=== PATIENT | female | born 1945 | race Caucasian/White ===

== ENCOUNTER 2016-08-27 17:43 | Emergency (ER) | payer MEDICARE ==
--- NOTE | 2016-08-27 18:17 | ECGEPIP ---
Stationary ECG Study [facility] - ED Test Date: 2016-08-27 Pat Name: HELEN MACIAS Department: Room: - Gender: F Cath Lab: rn : 1945 Requested By: OMID Hopper Order Number: [id number] Reading MD: Ramiro Paniagua Measurements Intervals [place] Rate: 88 P: 62 NV: 160 QRS: 5 QRSD: 76 T: 53 QT: 337 QTc: 409 Interpretive Statements SINUS RHYTHM NO PRIORS Electronically Signed On 08-27-2016 18:17:27 EST by Ramiro Paniagua
[2016-08-27 18:22] LABS: BASO % 0.6 % (0.0-1.0); EOS # 0.1 K/mm3 (0.0-0.50); EOS % 1.9 % (0.0-3.0); LARGE UNSTAINED CELL # 0.2 K/mm3 (0.0-0.4); LARGE UNSTAINED CELL % 3.4 % (0.0-4.0); LYMPH # 2.1 K/mm3 (1.5-4.5); LYMPH % 33.8 % (24.0-44.0); MEAN CORPUSCULAR HEMOGLOBIN 28.1 pg (27.0-33.0); MEAN CORPUSCULAR HGB CONC 31.5 g/dl (32.0-36.5); MEAN CORPUSCULAR VOLUME 89.1 fl (80.0-96.0); MONO # 0.4 K/mm3 (0.0-0.8); MONO % 6.7 % (0.0-5.0); NEUTROPHILS # 3.4 K/mm3 (1.8-7.7); NEUTROPHILS % 53.6 % (36.0-66.0); PLATELET COUNT, AUTOMATED 353 k/mm3 (150-450); WHITE BLOOD COUNT 6.3 K/mm3 (4.0-10.0)
--- NOTE | 2016-08-27 18:22 | REP ---
Clinical: Chest pain . Comparison: 08/07/2015 . Findings: The mediastinum and cardiac silhouette are stable and within normal limits for portable technique. The lung chavira are clear without acute consolidation, effusion, or pneumothorax. Skeletal structures are intact. Impression: Normal portable chest x-ray Signed by Sammy Pascual MD 08/27/2016 06:13 P
[2016-08-27 18:43] LABS: ANION GAP 8 MEQ/L (8-16); BLOOD UREA NITROGEN 17 MG/DL (7-18); CALCIUM LEVEL 8.3 MG/DL (8.8-10.2); CARBON DIOXIDE LEVEL 28 MEQ/L (21-32); CHLORIDE LEVEL 105 MEQ/L (98-107); CREATININE FOR GFR 0.57 MG/DL (0.55-1.02); GLOMERULAR FILTRATION RATE > 60.0 (>39); GLUCOSE, FASTING 110 MG/DL (83-110); POTASSIUM SERUM 4.1 MEQ/L (3.5-5.1); SODIUM LEVEL 141 MEQ/L (136-145)
--- NOTE | 2016-08-27 19:14 | EDDOCDS ---
Nurse's Notes [facility] Name: Ale Macias Age: 71 yrs Sex: Female : 1945 Arrival Date: 08/27/2016 Time: 17:43 Bed 5 Private MD: Sandip Estrella R. Diagnosis: Palpitations;Chest pain, unspecified Presentation: 08/27 17:50 Presenting complaint: Patient states: last 2 nights chest tightness and feels heart jjr pounding and irregular beats for "about a year" reports difficulty taking a deep breath for past few months. Aspirin was taken PROFILER. Adult Sepsis Screening: The patient does not have new or worsening altered mentation. Patient's respiratory rate is less than 22. Systolic blood pressure is greater than 100. Patient has a qSOFA score of 0- Negative Sepsis Screen. Suicide/Homicide risk assessment- the patient denies having any suicidal and/or homicidal ideations and does not present with any other emotional, behavioral or mental health complaints. Status: Patient is not a food service manager or dependent. Transition of care: patient was not received from another setting of care. 17:50 Acuity: RONNIE Level 3 jjr 17:50 Method Of Arrival: Walkin/Carried/Asstd jjr Triage Assessment: 17:56 General: Appears in no apparent distress, well nourished, well groomed, Behavior is jjr appropriate for age. Pain: Location: mid-sternal area Pain currently is 7 out of 10 on a pain scale. Quality of pain is described as pressure. Neurological: No deficits noted. Cardiovascular: Chest pain is described as Pain is 7 out of 10 on a pain scale. radiates Does not radiate. episodes are intermittent began few days ago. Respiratory: No deficits noted. Derm: No deficits noted. Historical: - Allergies: no known allergies; - Home Meds: 1. aspirin 81 mg Oral TbEC 1 tab once daily (Last dose: 08/27/2016 09:00) 2. amlodipine 5 mg Oral tab 1 tab once daily (Last dose: 08/27/2016) 3. valsartan 160 mg oral tab 1 tab nightly (Last dose: 08/26/2016) - PMHx: Hypertension; Celiac disease; - PSHx: Appendectomy; Tonsillectomy; - Social history: Smoking status: Patient states was never smoker of tobacco. No barriers to communication noted, The patient speaks fluent Occitan. - Family history: Not pertinent. - : The pt / caregiver states he / she is not on anticoagulants. Home medication list is obtained from the patient. - Exposure Risk Screening:: None identified. Screenin:00 Screening information is obtained from the patient. Fall risk: No risks identified. jjr Assistance ADL's: requires no assistance with activities of daily living. Abuse/DV Screen: The patient / caregiver reports he/she is: not in a situation that causes fear, pain or injury. Nutritional screening: No deficits noted. Advance Directives: There is no active DNR order. home support is adequate. Assessment: 17:58 General: Appears in no apparent distress. Cardiovascular: Rhythm is sinus rhythm. jjr 18:13 General: Behavior is anxious. Neurological: No deficits noted. Respiratory: No deficits jjr noted. Derm: No deficits noted. 19:11 General: Appears in no apparent distress, Behavior is cooperative. Neurological: Level af2 of Consciousness is awake, alert, obeys commands, Oriented to person, place, time. Cardiovascular: Rhythm is sinus rhythm. Respiratory: Airway is patent Respiratory effort is even, unlabored. Derm: Skin is normal. Vital Signs: 17:45 BP 163 / 83; Pulse 100; Resp 18; Temp 96.9; Pulse Ox 100% ; Weight 58.97 kg; Height 5 cmb ft. 3 in. (160.02 cm); Pain 8/10; 18:00 BP 160 / 89; Pulse 84; Resp 18; Pulse Ox 98% on R/A; jjr 18:29 BP 153 / 73 (auto/); jjr 18:29 Pulse 78 MON; Resp 18; Pulse Ox 97% on R/A; jjr 19:12 BP 147 / 89; Pulse 79; Resp 18 S; Temp 97.9(O); Pulse Ox 96% on R/A; Pain 0/10; af2 17:45 Body Mass Index 23.03 (58.97 kg, 160.02 cm) [facility] Vitals: 17:45 Log In Time: August 27, 2016 at 17:43. b ED Course: 17:44 Patient visited by Brianna Morales. cmb 17:44 Patient moved to Waiting [facility] 17:45 Sandip Estrella is Private Physician. cmb 17:46 RN notified that patient meets Red Flag criteria. cmb 17:46 Patient moved to 5 cmb 17:54 Triage Initiated jjr 17:58 The patient / caregiver is instructed regarding the plan of care and ED course. Cardiac jjr monitor on. Pulse ox on. NIBP on. 18:00 EKG done. (by ED staff). Reviewed by Omid Lewis MD. rn1 18:01 Patient visited by Marli Garcias, RN. jjr 18:13 Patient visited by Marli Garcias, RN. jjr 18:13 Basic Metabolic Profile Sent. jjr 18:13 CBC with Diff Sent. jjr 18:13 Cardiac Injury Profile Sent. jjr 18:13 Troponin Sent. jjr 18:13 Inserted saline lock: 20 gauge in left antecubital area and blood collected. Labs jjr drawn. (by ED staff). Sent per order to lab. 18:19 [facility] FNP [facility]. ke 18:19 Patient visited by Tyler Oates FNP. ke 18:19 Patient visited by Tyler Oates FNP. ke 18:38 EKG-ADULT Returned. EDMS 18:41 [facility] Payment Agreement was scanned into [employer] and attached to record. zo 18:41 portable chest Returned. EDMS 18:58 Kaiser Rodriguez MD is Referral Physician. ke 18:59 Maeve De Jesus,RN is Primary Nurse. af2 19:12 No procedures done that require assistance. af2 Order Results: Lab Order: Basic Metabolic Profile; SPEC'M 08/27/16 18:09 Test: GLUCOSE, FASTING; Value: 110; Range: 83-110; Units: MG/DL; Status: F Test: BLOOD UREA NITROGEN; Value: 17; Range: 7-18; Units: MG/DL; Status: F Test: CREATININE FOR GFR; Value: 0.57; Range: 0.55-1.02; Units: MG/DL; Status: F Test: GLOMERULAR FILTRATION RATE; Value: > 60.0; Range: >39; Status: F Test: SODIUM LEVEL; Value: 141; Range: 136-145; Units: MEQ/L; Status: F Test: POTASSIUM SERUM; Value: 4.1; Range: 3.5-5.1; Units: MEQ/L; Status: F Test: CHLORIDE LEVEL; Value: 105; Range: 98-107; Units: MEQ/L; Status: F Test: CARBON DIOXIDE LEVEL; Value: 28; Range: 21-32; Units: MEQ/L; Status: F Test: ANION GAP; Value: 8; Range: 8-16; Units: MEQ/L; Status: F Test: CALCIUM LEVEL; Value: 8.3; Range: 8.8-10.2; Abnormal: Below low normal; Units: MG/DL; Status: F Test Note: ; Units are mL/min/1.73 m2 Chronic Kidney Disease Staging per NKF: Stage I & II GFR >=60 Normal to Mildly Decreased Stage III GFR 30-59 Moderately Decreased Stage IV GFR 15-29 Severely Decreased Stage V GFR <15 Very Little GFR Left ESRD GFR <15 on TECHNOLOGY METHODOLOGY CONSULTANT Lab Order: CBC with Diff; SPEC'M 08/27/16 18:09 Test: WHITE BLOOD COUNT; Value: 6.3; Range: 4.0-10.0; Units: K/mm3; Status: F Test: RED BLOOD COUNT; Value: 4.49; Range: 4.00-5.40; Units: M/mm3; Status: F Test: HEMOGLOBIN; Value: 12.6; Range: 12.0-16.0; Units: g/dl; Status: F Test: HEMATOCRIT; Value: 40.0; Range: 36.0-47.0; Units: %; Status: F Test: MEAN CORPUSCULAR VOLUME; Value: 89.1; Range: 80.0-96.0; Units: fl; Status: F Test: MEAN CORPUSCULAR HEMOGLOBIN; Value: 28.1; Range: 27.0-33.0; Units: pg; Status: F Test: MEAN CORPUSCULAR HGB CONC; Value: 31.5; Range: 32.0-36.5; Abnormal: Below low normal; Units: g/dl; Status: F Test: RED CELL DISTRIBUTION WIDTH; Value: 13.0; Range: 11.5-14.5; Units: %; Status: F Test: PLATELET COUNT, AUTOMATED; Value: 353; Range: 150-450; Units: k/mm3; Status: F Test: NEUTROPHILS %; Value: 53.6; Range: 36.0-66.0; Units: %; Status: F Test: LYMPH %; Value: 33.8; Range: 24.0-44.0; Units: %; Status: F Test: MONO %; Value: 6.7; Range: 0.0-5.0; Abnormal: Above high normal; Units: %; Status: F Test: EOS %; Value: 1.9; Range: 0.0-3.0; Units: %; Status: F Test: BASO %; Value: 0.6; Range: 0.0-1.0; Units: %; Status: F Test: LARGE UNSTAINED CELL %; Value: 3.4; Range: 0.0-4.0; Units: %; Status: F Test: NEUTROPHILS #; Value: 3.4; Range: 1.8-7.7; Units: K/mm3; Status: F Test: LYMPH #; Value: 2.1; Range: 1.5-4.5; Units: K/mm3; Status: F Test: MONO #; Value: 0.4; Range: 0.0-0.8; Units: K/mm3; Status: F Test: EOS #; Value: 0.1; Range: 0.0-0.50; Units: K/mm3; Status: F Test: BASO #; Value: 0.0; Range: 0.0-0.2; Units: K/mm3; Status: F Test: LARGE UNSTAINED CELL #; Value: 0.2; Range: 0.0-0.4; Units: K/mm3; Status: F Lab Order: Cardiac Injury Profile; SPEC'M 08/27/16 18:09 Test: CPK CREATINE PHOSPHOKINASE; Value: 70; Range: 26-192; Units: U/L; Status: F Test: CK-MB VALUE MASS; Value: 1.0; Range: 0.0-3.6; Units: NG/ML; Status: F Test: MB/CK RELATIVE INDEX; Value: 1.42; Range: < OR =4; Status: F Test Note: ; DIAGNOSIS CRITERIA MMB ng/ml Relative Index (RI) NON-AMI < or = 5 N/A BOWIE ZONE > 5 < or = 4 AMI > 5 > 4 Lab Order: Troponin; SPEC'M 08/27/16 18:09 Test: TROPONIN I; Value: < 0.02; Range: < 0.10; Units: NG/ML; Status: F Test Note: ; Troponin I Reference Interval for Siemens [place] LOCI: 99th Percentile= 0.00-0.045 ng/ml Risk Stratification: <= 0.10 ng/ml Decreased Risk for Adverse Clinical Events. 0.10-1.50 ng/ml Increased Risk for Adverse Clinical Events. Evaluation of additional criterion and/or repeat testing in 2-6 hours is suggested to rule out myocardial damage. >= 1.50 ng/ml Indicative of Myocardial Injury. 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 The lung chavira are clear without acute consolidation,; effusion, or pneumothorax. Skeletal structures are intact.; ; Impression:; Normal portable chest x-ray; ; ; Signed by; Sammy Pascual MD 08/27/2016 06:13 P; Outcome: 18:59 Discharge ordered by Provider. ke 19:12 Discharge Assessment: Patient awake, alert and oriented x 3. No cognitive and/or af2 functional deficits noted. Patient verbalized understanding of disposition instructions. patient administered narcotics - no. The following High Risk Discharge criteria are identified: None. Discharged to home ambulatory. Condition: stable. Discharge instructions given to patient, Instructed on discharge instructions, follow up and referral plans. Demonstrated understanding of instructions, Pt was receptive of discharge instructions/ teaching. No special radiology studies were completed. Property :Personal belongings accompany Pt. 19:13 Patient left the ED. af2 Signatures: Dispatcher [employer] EDMS Tyler Oates, PRODUCT SAFETY HEAD Ermias Anderson Jessica, RN RN Brianna Allen Amber,STEPH RN af2 Harrison Nash rn1 [place]
--- NOTE | 2016-08-27 19:14 | EDDOCDS ---
Physician Documentation [facility] Name: Ale Helton Age: 71 yrs Sex: Female : 1945 Arrival Date: 08/27/2016 Time: 17:43 Bed 5 Private MD: Sandip Estrella R. Disposition: 08/27/16 18:59 Discharged to Home/Self Care. Impression: Palpitations, Chest pain, unspecified. - Condition is Stable. - Discharge Instructions: Nonspecific Chest Pain, Palpitations. - Local Pharmacy Hours, Medication Reconciliation form. - Follow up: Kaiser Rodriguez MD; When: 4 - 5 days; Reason: Recheck today's complaints, Continuance of care. - Problem is an ongoing problem. - Symptoms are unchanged. Historical: - Allergies: no known allergies; - Home Meds: 1. aspirin 81 mg Oral TbEC 1 tab once daily (Last dose: 08/27/2016 09:00) 2. amlodipine 5 mg Oral tab 1 tab once daily (Last dose: 08/27/2016) 3. valsartan 160 mg oral tab 1 tab nightly (Last dose: 08/26/2016) - PMHx: Hypertension; Celiac disease; - PSHx: Appendectomy; Tonsillectomy; - Social history: Smoking status: Patient states was never smoker of tobacco. No barriers to communication noted, The patient speaks fluent American. - Family history: Not pertinent. - : The pt / caregiver states he / she is not on anticoagulants. Home medication list is obtained from the patient. - Exposure Risk Screening:: None identified. Vital Signs: 08/27 17:45 BP 163 / 83; Pulse 100; Resp 18; Temp 96.9; Pulse Ox 100% ; Weight 58.97 kg / 130.01 cmb lbs; Height 5 ft. 3 in. (160.02 cm); Pain 8/10; 18:00 BP 160 / 89; Pulse 84; Resp 18; Pulse Ox 98% on R/A; jjr 18:29 BP 153 / 73 (auto/); jjr 18:29 Pulse 78 MON; Resp 18; Pulse Ox 97% on R/A; jjr 19:12 BP 147 / 89; Pulse 79; Resp 18 S; Temp 97.9(O); Pulse Ox 96% on R/A; Pain 0/10; af2 17:45 Body Mass Index 23.03 (58.97 kg, 160.02 cm) cmb MDM: 17:49 ECG WITH READING ER PHYS+CARDIAG ordered. EDMS 17:57 Machine Set Up Technician/Pulse Ox/q 30 min VS ordered. br1 17:57 IV Saline Lock ordered. br1 17:57 Rhythm Strip to chart ordered. br1 17:57 Undress patient appropriately for examination ordered. br1 17:58 Basic Metabolic Profile Ordered. EDMS 17:58 CBC with Diff Ordered. EDMS 17:58 Cardiac Injury Profile Ordered. EDMS 17:58 Troponin Ordered. EDMS 17:58 portable chest Ordered. EDMS 18:22 Financial registration complete. zo 18:41 [facility] Payment Agreement was scanned into [employer] and attached to record. zo 18:56 Basic Metabolic Profile Reviewed. ke 18:56 CBC with Diff Reviewed. ke 18:56 Cardiac Injury Profile Reviewed. ke 18:56 Troponin Reviewed. ke 18:56 EKG-ADULT Reviewed. ke 18:56 portable chest Reviewed. ke Signatures: Dispatcher [employer] EDNE Tyler Oates, JAVA CONSULTANT JAVA CONSULTANT Ermias Tyler Brian, MD MD br1 Marli Garcias, RN RN Maeve ChristianRN RN af2 The chart was reviewed and I authenticate all verbal orders and agree with the evaluation and treatment provided.Attachments: 18:41 [facility] Payment Agreement zo MTDD
--- NOTE | 2016-08-29 20:14 | EDDOCDS ---
Physician Documentation [facility] Name: Ale Helton Age: 71 yrs Sex: Female : 1945 Arrival Date: 08/27/2016 Time: 17:43 Bed 5 Private MD: Sandip Estrella R. Disposition: 08/27/16 18:59 Discharged to Home/Self Care. Impression: Palpitations, Chest pain, unspecified. - Condition is Stable. - Discharge Instructions: Nonspecific Chest Pain, Palpitations. - Local Pharmacy Hours, Medication Reconciliation form. - Follow up: Kaiser Rodriguez MD; When: 4 - 5 days; Reason: Recheck today's complaints, Continuance of care. - Problem is an ongoing problem. - Symptoms are unchanged. Historical: - Allergies: no known allergies; - Home Meds: 1. aspirin 81 mg Oral TbEC 1 tab once daily (Last dose: 08/27/2016 09:00) 2. amlodipine 5 mg Oral tab 1 tab once daily (Last dose: 08/27/2016) 3. valsartan 160 mg oral tab 1 tab nightly (Last dose: 08/26/2016) - PMHx: Hypertension; Celiac disease; - PSHx: Appendectomy; Tonsillectomy; - Social history: Smoking status: Patient states was never smoker of tobacco. No barriers to communication noted, The patient speaks fluent [place]serratian. - Family history: Not pertinent. - : The pt / caregiver states he / she is not on anticoagulants. Home medication list is obtained from the patient. - Exposure Risk Screening:: None identified. Vital Signs: 08/27 17:45 BP 163 / 83; Pulse 100; Resp 18; Temp 96.9; Pulse Ox 100% ; Weight 58.97 kg / 130.01 cmb lbs; Height 5 ft. 3 in. (160.02 cm); Pain 8/10; 18:00 BP 160 / 89; Pulse 84; Resp 18; Pulse Ox 98% on R/A; jjr 18:29 BP 153 / 73 (auto/); jjr 18:29 Pulse 78 MON; Resp 18; Pulse Ox 97% on R/A; jjr 19:12 BP 147 / 89; Pulse 79; Resp 18 S; Temp 97.9(O); Pulse Ox 96% on R/A; Pain 0/10; af2 17:45 Body Mass Index 23.03 (58.97 kg, 160.02 cm) cmb MDM: 17:49 ECG WITH READING ER PHYS+CARDIAG ordered. EDMS 17:57 Prepared Foods Supervisor/Pulse Ox/q 30 min VS ordered. br1 17:57 IV Saline Lock ordered. br1 17:57 Rhythm Strip to chart ordered. br1 17:57 Undress patient appropriately for examination ordered. br1 17:58 Basic Metabolic Profile Ordered. EDMS 17:58 CBC with Diff Ordered. EDMS 17:58 Cardiac Injury Profile Ordered. EDMS 17:58 Troponin Ordered. EDMS 17:58 portable chest Ordered. EDMS 18:22 Financial registration complete. zo 18:41 [facility] Payment Agreement was scanned into [employer] and attached to record. zo 18:56 Basic Metabolic Profile Reviewed. ke 18:56 CBC with Diff Reviewed. ke 18:56 Cardiac Injury Profile Reviewed. ke 18:56 Troponin Reviewed. ke 18:56 EKG-ADULT Reviewed. ke 18:56 portable chest Reviewed. ke 08/28 08:56 T-Sheet-- Draft Copy was scanned into [employer] and attached to record. [facility] Signatures: Dispatcher [employer] EDMS Tyler Oates, COMMISSIONING EDITOR COMMISSIONING EDITOR Ermias Tyler Brian, MD MD br1 Marli Garcias RN RN jjr Fulton, Amber, RN RN af2 Tiki Ashraf [facility] The chart was reviewed and I authenticate all verbal orders and agree with the evaluation and treatment provided.Attachments: 08/27 18:41 [facility] Payment Agreement zo 08/28 08:56 T-Sheet-- Draft Copy [facility] Chart Complete MTDD
--- NOTE | 2016-08-29 20:14 | EDDOCDS ---
Physician Documentation [facility] Name: Ale Helton Age: 71 yrs Sex: Female : 1945 Arrival Date: 08/27/2016 Time: 17:43 Bed 5 Private MD: Sandip Estrella R. Disposition: 08/27/16 18:59 Discharged to Home/Self Care. Impression: Palpitations, Chest pain, unspecified. - Condition is Stable. - Discharge Instructions: Nonspecific Chest Pain, Palpitations. - Local Pharmacy Hours, Medication Reconciliation form. - Follow up: Kaiser Rodriguez MD; When: 4 - 5 days; Reason: Recheck today's complaints, Continuance of care. - Problem is an ongoing problem. - Symptoms are unchanged. Historical: - Allergies: no known allergies; - Home Meds: 1. aspirin 81 mg Oral TbEC 1 tab once daily (Last dose: 08/27/2016 09:00) 2. amlodipine 5 mg Oral tab 1 tab once daily (Last dose: 08/27/2016) 3. valsartan 160 mg oral tab 1 tab nightly (Last dose: 08/26/2016) - PMHx: Hypertension; Celiac disease; - PSHx: Appendectomy; Tonsillectomy; - Social history: Smoking status: Patient states was never smoker of tobacco. No barriers to communication noted, The patient speaks fluent Kenyan. - Family history: Not pertinent. - : The pt / caregiver states he / she is not on anticoagulants. Home medication list is obtained from the patient. - Exposure Risk Screening:: None identified. Vital Signs: 08/27 17:45 BP 163 / 83; Pulse 100; Resp 18; Temp 96.9; Pulse Ox 100% ; Weight 58.97 kg / 130.01 cmb lbs; Height 5 ft. 3 in. (160.02 cm); Pain 8/10; 18:00 BP 160 / 89; Pulse 84; Resp 18; Pulse Ox 98% on R/A; jjr 18:29 BP 153 / 73 (auto/); jjr 18:29 Pulse 78 MON; Resp 18; Pulse Ox 97% on R/A; jjr 19:12 BP 147 / 89; Pulse 79; Resp 18 S; Temp 97.9(O); Pulse Ox 96% on R/A; Pain 0/10; af2 17:45 Body Mass Index 23.03 (58.97 kg, 160.02 cm) cmb MDM: 17:49 ECG WITH READING ER PHYS+CARDIAG ordered. EDMS 17:57 Environmental Test Technician/Pulse Ox/q 30 min VS ordered. br1 17:57 IV Saline Lock ordered. br1 17:57 Rhythm Strip to chart ordered. br1 17:57 Undress patient appropriately for examination ordered. br1 17:58 Basic Metabolic Profile Ordered. EDMS 17:58 CBC with Diff Ordered. EDMS 17:58 Cardiac Injury Profile Ordered. EDMS 17:58 Troponin Ordered. EDMS 17:58 portable chest Ordered. EDMS 18:22 Financial registration complete. zo 18:41 [facility] Payment Agreement was scanned into [employer] and attached to record. zo 18:56 Basic Metabolic Profile Reviewed. ke 18:56 CBC with Diff Reviewed. ke 18:56 Cardiac Injury Profile Reviewed. ke 18:56 Troponin Reviewed. ke 18:56 EKG-ADULT Reviewed. ke 18:56 portable chest Reviewed. ke 08/28 08:56 T-Sheet-- Draft Copy was scanned into [email or web address] and attached to record. [facility] Signatures: Dispatcher [employer] EDMS Tyler Oates, LABORER GOLF COURSE LABORER GOLF COURSE Ermias Tyler Brian, MD MD br1 Marli Garcias RN RN jjr Fulton, Amber, RN RN af2 Tiki Ashraf [facility] The chart was reviewed and I authenticate all verbal orders and agree with the evaluation and treatment provided.Attachments: 08/27 18:41 [facility] [place] Payment Agreement zo 08/28 08:56 T-Sheet-- Draft Copy [facility] Chart Complete MTDD
--- NOTE | 2016-08-29 20:15 | EDDOCDS ---
Nurse's Notes [facility] Name: Helen Macias Age: 71 yrs Sex: Female : 1945 Arrival Date: 08/27/2016 Time: 17:43 Bed 5 Private MD: Sandip Estrella R. Diagnosis: Palpitations;Chest pain, unspecified Presentation: 08/27 17:50 Presenting complaint: Patient states: last 2 nights chest tightness and feels heart jjr pounding and irregular beats for "about a year" reports difficulty taking a deep breath for past few months. 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 Adult Sepsis Screening: The patient does not have new or worsening altered mentation. Patient's respiratory rate is less than 22. Systolic blood pressure is greater than 100. Patient has a qSOFA score of 0- Negative Sepsis Screen. Suicide/Homicide risk assessment- the patient denies having any suicidal and/or homicidal ideations and does not present with any other emotional, behavioral or mental health complaints. 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 Transition of care: patient was not received from another setting of care. 17:50 Acuity: RONNIE Level 3 jjr 17:50 Method Of Arrival: Walkin/Carried/Asstd jjr Triage Assessment: 17:56 General: Appears in no apparent distress, well nourished, well groomed, Behavior is jjr appropriate for age. Pain: Location: mid-sternal area Pain currently is 7 out of 10 on a pain scale. Quality of pain is described as pressure. Neurological: No deficits noted. Cardiovascular: Chest pain is described as Pain is 7 out of 10 on a pain scale. radiates Does not radiate. episodes are intermittent began few days ago. Respiratory: No deficits noted. Derm: No deficits noted. Historical: - Allergies: no known allergies; - Home Meds: 1. aspirin 81 mg Oral TbEC 1 tab once daily (Last dose: 08/27/2016 09:00) 2. amlodipine 5 mg Oral tab 1 tab once daily (Last dose: 08/27/2016) 3. valsartan 160 mg oral tab 1 tab nightly (Last dose: 08/26/2016) - PMHx: Hypertension; Celiac disease; - PSHx: Appendectomy; Tonsillectomy; - Social history: Smoking status: Patient states was never smoker of tobacco. No barriers to communication noted, The patient speaks fluent Bulgarian. - Family history: Not pertinent. - : The pt / caregiver states he / she is not on anticoagulants. Home medication list is obtained from the patient. - Exposure Risk Screening:: None identified. Screenin:00 Screening information is obtained from the patient. Fall risk: No risks identified. jjr Assistance ADL's: requires no assistance with activities of daily living. Abuse/DV Screen: The patient / caregiver reports he/she is: not in a situation that causes fear, pain or injury. Nutritional screening: No deficits noted. Advance Directives: There is no active DNR order. home support is adequate. Assessment: 17:58 General: Appears in no apparent distress. Cardiovascular: Rhythm is sinus rhythm. jjr 18:13 General: Behavior is anxious. Neurological: No deficits noted. Respiratory: No deficits jjr noted. Derm: No deficits noted. 19:11 General: Appears in no apparent distress, Behavior is cooperative. Neurological: Level af2 of Consciousness is awake, alert, obeys commands, Oriented to person, place, time. Cardiovascular: Rhythm is sinus rhythm. Respiratory: Airway is patent Respiratory effort is even, unlabored. Derm: Skin is normal. Vital Signs: 17:45 BP 163 / 83; Pulse 100; Resp 18; Temp 96.9; Pulse Ox 100% ; Weight 58.97 kg; Height 5 cmb ft. 3 in. (160.02 cm); Pain 8/10; 18:00 BP 160 / 89; Pulse 84; Resp 18; Pulse Ox 98% on R/A; jjr 18:29 BP 153 / 73 (auto/); jjr 18:29 Pulse 78 MON; Resp 18; Pulse Ox 97% on R/A; jjr 19:12 BP 147 / 89; Pulse 79; Resp 18 S; Temp 97.9(O); Pulse Ox 96% on R/A; Pain 0/10; af2 17:45 Body Mass Index 23.03 (58.97 kg, 160.02 cm) [facility] Vitals: 17:45 Log In Time: August 27, 2016 at 17:43. b ED Course: 17:44 Patient visited by Brianna Morales. cmb 17:44 Patient moved to Waiting [facility] 17:45 Sandip Estrella is Private Physician. cmb 17:46 RN notified that patient meets Red Flag criteria. cmb 17:46 Patient moved to 5 cmb 17:54 Triage Initiated jjr 17:58 The patient / caregiver is instructed regarding the plan of care and ED course. Cardiac jjr monitor on. Pulse ox on. NIBP on. 18:00 EKG done. (by ED staff). Reviewed by Omid Lewis MD. rn1 18:01 Patient visited by Marli Garcias, RN. jjr 18:13 Patient visited by Marli Garcias, RN. jjr 18:13 Basic Metabolic Profile Sent. jjr 18:13 CBC with Diff Sent. jjr 18:13 Cardiac Injury Profile Sent. jjr 18:13 Troponin Sent. jjr 18:13 Inserted saline lock: 20 gauge in left antecubital area and blood collected. Labs jjr drawn. (by ED staff). Sent per order to lab. 18:19 Tyler Oates FNP [facility]. ke 18:19 Patient visited by Tyler Oates FNP. ke 18:19 Patient visited by Tyler Oates FNP. ke 18:38 EKG-ADULT Returned. EDMS 18:41 [facility] Payment Agreement was scanned into [employer] and attached to record. zo 18:41 portable chest Returned. EDMS 18:58 Kaiser Rodriguez MD is Referral Physician. ke 18:59 Maeve De Jesus,RN is Primary Nurse. af2 19:12 No procedures done that require assistance. af2 08/28 08:56 T-Sheet-- Draft Copy was scanned into [employer] and attached to record. [facility]x [facility] Order Results: Lab Order: Basic Metabolic Profile; SPEC'M 08/27/16 18:09 Test: GLUCOSE, FASTING; Value: 110; Range: 83-110; Units: MG/DL; Status: F Test: BLOOD UREA NITROGEN; Value: 17; Range: 7-18; Units: MG/DL; Status: F Test: CREATININE FOR GFR; Value: 0.57; Range: 0.55-1.02; Units: MG/DL; Status: F Test: GLOMERULAR FILTRATION RATE; Value: > 60.0; Range: >39; Status: F Test: SODIUM LEVEL; Value: 141; Range: 136-145; Units: MEQ/L; Status: F Test: POTASSIUM SERUM; Value: 4.1; Range: 3.5-5.1; Units: MEQ/L; Status: F Test: CHLORIDE LEVEL; Value: 105; Range: 98-107; Units: MEQ/L; Status: F Test: CARBON DIOXIDE LEVEL; Value: 28; Range: 21-32; Units: MEQ/L; Status: F Test: ANION GAP; Value: 8; Range: 8-16; Units: MEQ/L; Status: F Test: CALCIUM LEVEL; Value: 8.3; Range: 8.8-10.2; Abnormal: Below low normal; Units: MG/DL; Status: F Test Note: ; Units are mL/min/1.73 m2 Chronic Kidney Disease Staging per NKF: Stage I & II GFR >=60 Normal to Mildly Decreased Stage III GFR 30-59 Moderately Decreased Stage IV GFR 15-29 Severely Decreased Stage V GFR <15 Very Little GFR Left ESRD GFR <15 on MARKETING TRAFFIC COORDINATOR Lab Order: CBC with Diff; SPEC'M 08/27/16 18:09 Test: WHITE BLOOD COUNT; Value: 6.3; Range: 4.0-10.0; Units: K/mm3; Status: F Test: RED BLOOD COUNT; Value: 4.49; Range: 4.00-5.40; Units: M/mm3; Status: F Test: HEMOGLOBIN; Value: 12.6; Range: 12.0-16.0; Units: g/dl; Status: F Test: HEMATOCRIT; Value: 40.0; Range: 36.0-47.0; Units: %; Status: F Test: MEAN CORPUSCULAR VOLUME; Value: 89.1; Range: 80.0-96.0; Units: fl; Status: F Test: MEAN CORPUSCULAR HEMOGLOBIN; Value: 28.1; Range: 27.0-33.0; Units: pg; Status: F Test: MEAN CORPUSCULAR HGB CONC; Value: 31.5; Range: 32.0-36.5; Abnormal: Below low normal; Units: g/dl; Status: F Test: RED CELL DISTRIBUTION WIDTH; Value: 13.0; Range: 11.5-14.5; Units: %; Status: F Test: PLATELET COUNT, AUTOMATED; Value: 353; Range: 150-450; Units: k/mm3; Status: F Test: NEUTROPHILS %; Value: 53.6; Range: 36.0-66.0; Units: %; Status: F Test: LYMPH %; Value: 33.8; Range: 24.0-44.0; Units: %; Status: F Test: MONO %; Value: 6.7; Range: 0.0-5.0; Abnormal: Above high normal; Units: %; Status: F Test: EOS %; Value: 1.9; Range: 0.0-3.0; Units: %; Status: F Test: BASO %; Value: 0.6; Range: 0.0-1.0; Units: %; Status: F Test: LARGE UNSTAINED CELL %; Value: 3.4; Range: 0.0-4.0; Units: %; Status: F Test: NEUTROPHILS #; Value: 3.4; Range: 1.8-7.7; Units: K/mm3; Status: F Test: LYMPH #; Value: 2.1; Range: 1.5-4.5; Units: K/mm3; Status: F Test: MONO #; Value: 0.4; Range: 0.0-0.8; Units: K/mm3; Status: F Test: EOS #; Value: 0.1; Range: 0.0-0.50; Units: K/mm3; Status: F Test: BASO #; Value: 0.0; Range: 0.0-0.2; Units: K/mm3; Status: F Test: LARGE UNSTAINED CELL #; Value: 0.2; Range: 0.0-0.4; Units: K/mm3; Status: F Lab Order: Cardiac Injury Profile; SPEC'M 08/27/16 18:09 Test: CPK CREATINE PHOSPHOKINASE; Value: 70; Range: 26-192; Units: U/L; Status: F Test: CK-MB VALUE MASS; Value: 1.0; Range: 0.0-3.6; Units: NG/ML; Status: F Test: MB/CK RELATIVE INDEX; Value: 1.42; Range: < OR =4; Status: F Test Note: ; DIAGNOSIS CRITERIA MMB ng/ml Relative Index (RI) NON-AMI < or = 5 N/A BOWIE ZONE > 5 < or = 4 AMI > 5 > 4 Lab Order: Troponin; FANTASMA 08/27/16 18:09 Test: TROPONIN I; Value: < 0.02; Range: < 0.10; Units: NG/ML; Status: F Test Note: ; Troponin I Reference Interval for [employer] [place] LOCI: 99th Percentile= 0.00-0.045 ng/ml Risk Stratification: <= 0.10 ng/ml Decreased Risk for Adverse Clinical Events. 0.10-1.50 ng/ml Increased Risk for Adverse Clinical Events. Evaluation of additional criterion and/or repeat testing in 2-6 hours is suggested to rule out myocardial damage. >= 1.50 ng/ml Indicative of Myocardial Injury. Radiology Order: EKG-ADULT Test: EKG-ADULT REASON FOR EXAMINATION: Chest Pain; Stationary ECG Study; [facility] - ED; ; Test Date: 2016-08-27; Pat Name: HELEN MACIAS Department:; Room: -; Gender: F Photographers' Model: rn; : 1945 Requested By: OMID Hopper; Order Number: [id number] Reading MD: Ramiro Paniagua; Measurements; Intervals [place]; Rate: 88 P: 62; VT: 160 QRS: 5; QRSD: 76 T: 53; QT: 337; QTc: 409; Interpretive Statements; SINUS RHYTHM; NO PRIORS; Electronically Signed On 08-27-2016 18:17:27 EST by Ramiro Paniagua; Radiology Order: portable chest Test: portable chest REASON FOR EXAMINATION: Chest Pain; Clinical: Chest pain .; ; Comparison: 08/07/2015 .; ; Findings:; The mediastinum and cardiac silhouette are stable and within normal limits for; portable technique. The lung chavira are clear without acute consolidation,; effusion, or pneumothorax. Skeletal structures are intact.; ; Impression:; Normal portable chest x-ray; ; ; Signed by; Sammy Pascual MD 08/27/2016 06:13 P; Outcome: 08/27 18:59 Discharge ordered by Provider. nancy 19:12 Discharge Assessment: Patient awake, alert and oriented x 3. No cognitive and/or af2 functional deficits noted. Patient verbalized understanding of disposition instructions. patient administered narcotics - no. The following High Risk Discharge criteria are identified: None. Discharged to home ambulatory. Condition: stable. Discharge instructions given to patient, Instructed on discharge instructions, follow up and referral plans. Demonstrated understanding of instructions, Pt was receptive of discharge instructions/ teaching. No special radiology studies were completed. Property :Personal belongings accompany Pt. 19:13 Patient left the ED. af2 Signatures: Dispatcher [employer] EDMS Tyler Oates, Ermias Mohr Jessica, RN RN Brianna Allen AmberRN RN af2 Harrison Nash rn1 Tiki Ashraf Chart Complete APPLE
== END 2016-08-27 19:13 | disposition home or self-care (01) ==
LOC: M ED 17:43
DX: R07.89 Other chest pain (principal); R00.2 Palpitations; R06.02 Shortness of breath; I10 Essential (primary) hypertension; K90.0 Celiac disease; Z79.899 Other long term (current) drug therapy; Z79.82 Long term (current) use of aspirin

== ENCOUNTER → 2017-10-26 | Outpatient (REF) | payer MEDICARE | LOC: M SFHCLERA 10:24 | DX: R94.6 Abnormal results of thyroid function studies (principal); E78.2 Mixed hyperlipidemia; E55.9 Vitamin D deficiency, unspecified; Z53.9 Procedure and treatment not carried out, unspecified reason ==

== ENCOUNTER → 2017-11-01 | Outpatient (REF) | payer MEDICARE ==
[2017-11-01 11:43] LABS: HEMATOCRIT 35.9 % (36.0-47.0); HEMOGLOBIN 11.3 g/dl (12.0-15.5); MEAN CORPUSCULAR HGB CONC 31.5 g/dl (32.0-36.5); MEAN CORPUSCULAR VOLUME 89.1 fl (80.0-96.0); PLATELET COUNT, AUTOMATED 287 10^3/uL (150-450); RED BLOOD COUNT 4.03 10^6/uL (4.00-5.40); RED CELL DISTRIBUTION WIDTH 14.4 % (11.5-14.5); WHITE BLOOD COUNT 4.8 10^3/uL (4.0-10.0)
[2017-11-01 12:05] LABS: TOTAL 25(OH) VITAMIN D 31.8 NG/ML (30.0-100.0)
[2017-11-01 12:07] LABS: CALCIUM LEVEL 8.1 MG/DL (8.8-10.2); CHOLESTEROL LEVEL 166 MG/DL (<200); CHOLESTEROL RISK RATIO 4.048 (<5); GLUCOSE, FASTING 93 MG/DL (70-100); HDL CHOLESTEROL 41 MG/DL (>40); LDL CHOLESTEROL 109.2 MG/DL (<100); NON-HDL-C 125 MG/DL; TRIGLYCERIDES LEVEL 79 MG/DL (<150)
== END ==
LOC: M SFHCLERA 08:08
DX: R94.6 Abnormal results of thyroid function studies (principal); E78.2 Mixed hyperlipidemia; E55.9 Vitamin D deficiency, unspecified
CPT/HCPCS: 82310

== ENCOUNTER → 2018-10-01 | Outpatient (REF) | payer MEDICARE ==
[2018-10-01 20:39] LABS: BASO % 0.3 % (0.0-1.0); EOS % 0.4 % (0.0-3.0); HEMATOCRIT 38.8 % (36.0-47.0); HEMOGLOBIN 12.5 g/dl (12.0-15.5); LYMPH # 1.8 10^3/uL (1.5-4.5); LYMPH % 26.1 % (24.0-44.0); MEAN CORPUSCULAR HEMOGLOBIN 29.8 pg (27.0-33.0); MEAN CORPUSCULAR HGB CONC 32.2 g/dl (32.0-36.5); MEAN CORPUSCULAR VOLUME 92.6 fl (80.0-96.0); MONO # 0.8 10^3/uL (0.0-0.8); NEUTROPHILS # 4.4 10^3/uL (1.8-7.7); NEUTROPHILS % 61.9 % (36.0-66.0); PLATELET COUNT, AUTOMATED 342 10^3/uL (150-450); RED BLOOD COUNT 4.19 10^6/uL (4.00-5.40)
== END ==
LOC: M SFHCLERA 15:16
PROVIDERS: ATTEND Nurse Practitioner Family
DX: R19.7 Diarrhea, unspecified (principal)
CPT/HCPCS: 83655; 85025; G0463

== ENCOUNTER → 2018-10-02 | Outpatient (REF) | payer MEDICARE | LOC: M SFHCLERA 11:20 | PROVIDERS: ATTEND Nurse Practitioner Family | DX: R19.7 Diarrhea, unspecified (principal) ==

== ENCOUNTER → 2018-11-12 | Outpatient (REF) | payer MEDICARE ==
[2018-11-12 12:19] LABS: BASO % 0.3 % (0.0-1.0); EOS # 0.1 10^3/uL (0.0-0.50); EOS % 1.3 % (0.0-3.0); HEMATOCRIT 37.1 % (36.0-47.0); HEMOGLOBIN 11.9 g/dl (12.0-15.5); LYMPH # 2.2 10^3/uL (1.5-4.5); LYMPH % 34.1 % (24.0-44.0); MEAN CORPUSCULAR HEMOGLOBIN 30.9 pg (27.0-33.0); MEAN CORPUSCULAR HGB CONC 32.1 g/dl (32.0-36.5); MEAN CORPUSCULAR VOLUME 96.4 fl (80.0-96.0); MONO # 0.8 10^3/uL (0.0-0.8); NEUTROPHILS # 3.3 10^3/uL (1.8-7.7); NEUTROPHILS % 51.1 % (36.0-66.0); PLATELET COUNT, AUTOMATED 335 10^3/uL (150-450); RED BLOOD COUNT 3.85 10^6/uL (4.00-5.40); WHITE BLOOD COUNT 6.4 10^3/uL (4.0-10.0)
[2018-11-12 12:34] LABS: ALBUMIN 3.1 GM/DL (3.2-5.2); ALT/SGPT 70 U/L (12-78); BILIRUBIN,TOTAL 0.2 MG/DL (0.2-1.0); BLOOD UREA NITROGEN 19 MG/DL (7-18); CALCIUM LEVEL 7.8 MG/DL (8.8-10.2); CARBON DIOXIDE LEVEL 24 MEQ/L (21-32); CHLORIDE LEVEL 111 MEQ/L (98-107); CHOLESTEROL LEVEL 151 MG/DL (<200); CREATININE FOR GFR 0.37 MG/DL (0.55-1.30); FERRITIN 6 NG/ML (8-252); FREE T4 1.33 NG/DL (0.76-1.46); GLOMERULAR FILTRATION RATE > 60.0 (>39); GLUCOSE, FASTING 99 MG/DL (70-100); HDL CHOLESTEROL 31 MG/DL (>40); LDL CHOLESTEROL 99 MG/DL (<100); NON-HDL-C 120 MG/DL; POTASSIUM SERUM 4.5 MEQ/L (3.5-5.1); PTH INTACT 141.8 PG/ML (18.5-88.0); SODIUM LEVEL 140 MEQ/L (136-145); TRIGLYCERIDES LEVEL 106 MG/DL (<150)
[2018-11-12 12:45] LABS: TOTAL 25(OH) VITAMIN D 20.2 NG/ML (30.0-100.0)
== END ==
LOC: M SFHCLERA 08:17
PROVIDERS: ATTEND Nurse Practitioner Family
DX: E83.51 Hypocalcemia (principal); D64.9 Anemia, unspecified; Z13.220 Encounter for screening for lipoid disorders; E03.9 Hypothyroidism, unspecified; R94.6 Abnormal results of thyroid function studies; E55.9 Vitamin D deficiency, unspecified

== ENCOUNTER 2018-12-15 14:35 | Emergency (ER) | payer MEDICARE ==
[~2018-12-15] VITALS: Ht 160 cm; Wt 55.9 kg
[2018-12-15] MEDS ORDERED: ASPIRIN 81 MG CHEW TABLET PO ONE (15:00)
[2018-12-15 15:17] LABS: BASO % 0.3 % (0.0-1.0); EOS % 0.6 % (0.0-3.0); HEMATOCRIT 38.2 % (36.0-47.0); HEMOGLOBIN 12.3 g/dl (12.0-15.5); LYMPH # 2.1 10^3/uL (1.5-4.5); LYMPH % 33.1 % (24.0-44.0); MEAN CORPUSCULAR HEMOGLOBIN 30.3 pg (27.0-33.0); MEAN CORPUSCULAR HGB CONC 32.2 g/dl (32.0-36.5); MEAN CORPUSCULAR VOLUME 94.1 fl (80.0-96.0); MONO # 0.8 10^3/uL (0.0-0.8); MONO % 12.2 % (0.0-5.0); NEUTROPHILS # 3.4 10^3/uL (1.8-7.7); NEUTROPHILS % 53.5 % (36.0-66.0); PLATELET COUNT, AUTOMATED 330 10^3/uL (150-450); RED BLOOD COUNT 4.06 10^6/uL (4.00-5.40); WHITE BLOOD COUNT 6.3 10^3/uL (4.0-10.0)
[2018-12-15 15:20] LABS: INR 1.04; PROTHROMBIN TIME 13.7 SECONDS (12.1-14.4)
[2018-12-15 15:21] LABS: PARTIAL THROMBOPLASTIN TIME 28.3 SECONDS (25.4-37.6)
[2018-12-15 15:42] LABS: ALBUMIN 3.1 GM/DL (3.2-5.2); ALT/SGPT 86 U/L (12-78); BILIRUBIN,DIRECT < 0.1 MG/DL (0.0-0.2); BILIRUBIN,TOTAL 0.2 MG/DL (0.2-1.0); BLOOD UREA NITROGEN 18 MG/DL (7-18); CALCIUM LEVEL 7.7 MG/DL (8.8-10.2); CARBON DIOXIDE LEVEL 23 MEQ/L (21-32); CHLORIDE LEVEL 112 MEQ/L (98-107); CPK CREATINE PHOSPHOKINASE 156 U/L (26-192); CREATININE FOR GFR 0.45 MG/DL (0.55-1.30); GLOMERULAR FILTRATION RATE > 60.0 (>39); GLUCOSE, FASTING 100 MG/DL (70-100); LIPASE 139 U/L (73-393); MB/CK RELATIVE INDEX 1.28 (< OR =4); POTASSIUM SERUM 5.4 MEQ/L (3.5-5.1); SODIUM LEVEL 140 MEQ/L (136-145); TROPONIN I < 0.02 NG/ML (< 0.10)
[2018-12-15] MEDS ORDERED: FERR325T18 (15:47)
[2018-12-15] MEDS ORDERED: VITA500045 (15:47)
[2018-12-15] MEDS ORDERED: OYSCTAB (15:47)
[2018-12-15 17:11] LABS: CK-MB VALUE MASS 2.1 NG/ML (<3.6); CPK CREATINE PHOSPHOKINASE 102 U/L (26-192); MB/CK RELATIVE INDEX 2.06 (< OR =4); TROPONIN I < 0.02 NG/ML (< 0.10)
[2018-12-15] MEDS ORDERED: PROT1TAB2 PO (17:22)
[2018-12-15 17:32] VITALS: BP 162/82
--- NOTE | 2018-12-16 07:07 | REP ---
CHEST, TWO VIEWS: There is no evidence of acute infiltrate. No pleural effusion is seen. The heart is normal in size. The mediastinal silhouette is unremarkable. The visualized osseous structures are intact. IMPRESSION: No acute pulmonary disease. Electronically Signed by Vargas Alberts MD 12/16/2018 04:14 P
--- NOTE | 2018-12-16 18:49 | ECGEPIP ---
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
--- NOTE | 2018-12-16 18:50 | ECGEPIP ---
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
== END 2018-12-15 17:38 | disposition home or self-care (01) ==
LOC: M ED 14:35
DX: R07.9 Chest pain, unspecified (principal); R05 Cough; K21.9 Gastro-esophageal reflux disease without esophagitis; E55.9 Vitamin D deficiency, unspecified; J30.2 Other seasonal allergic rhinitis; Z79.899 Other long term (current) drug therapy
CPT/HCPCS: 36415; 71046; 80048; 80076; 82550; 82553; 83690; 84439; 84443; 84484; 85025; 85610; 85730; 93005; 93041; 94760; 99285; G0463

== ENCOUNTER 2019-02-23 19:18 | Emergency (ER) | payer MEDICARE ==
[~2019-02-23] VITALS: Ht 160 cm; Wt 59.1 kg
[~2019-02-23 19:18] MED LIST: FERR325T18; OYSCTAB; PROT1TAB2 PO; VITA500045
[2019-02-23] MEDS ORDERED: OLOP0.1D OD (20:47)
[2019-02-23 20:55] VITALS: BP 152/82
== END 2019-02-23 20:56 | disposition home or self-care (01) ==
LOC: M ED 19:18
DX: H10.211 Acute toxic conjunctivitis, right eye (principal); T55.1X1A Toxic effect of detergents, accidental (unintentional), initial encounter; Y92.89 Other specified places as the place of occurrence of the external cause; Y93.E2 Activity, laundry; D64.9 Anemia, unspecified; Z79.899 Other long term (current) drug therapy

== ENCOUNTER → 2019-03-18 | Outpatient (CLI) | payer MEDICARE ==
[~2019-03-18] MED LIST changes: +OLOP0.1D OD
[2019-03-18 17:17] LABS: ALBUMIN 3.4 GM/DL (3.2-5.2); ALT/SGPT 61 U/L (12-78); BILIRUBIN,DIRECT < 0.1 MG/DL (0.0-0.2); BILIRUBIN,TOTAL 0.3 MG/DL (0.2-1.0); TOTAL PROTEIN 6.5 GM/DL (6.4-8.2)
== END ==
LOC: M LRY 10:42
PROVIDERS: ATTEND Physician Assistant Medical
DX: R94.5 Abnormal results of liver function studies (principal); K90.0 Celiac disease

== ENCOUNTER → 2019-03-18 | Outpatient (REF) | payer MEDICARE ==
[2019-03-18 17:16] LABS: ALBUMIN 3.5 GM/DL (3.2-5.2); ALT/SGPT 61 U/L (12-78); BILIRUBIN,TOTAL 0.3 MG/DL (0.2-1.0); BLOOD UREA NITROGEN 24 MG/DL (7-18); CALCIUM LEVEL 8.8 MG/DL (8.8-10.2); CARBON DIOXIDE LEVEL 26 MEQ/L (21-32); CHLORIDE LEVEL 110 MEQ/L (98-107); CREATININE FOR GFR 0.46 MG/DL (0.55-1.30); FERRITIN 9 NG/ML (8-252); GLOMERULAR FILTRATION RATE > 60.0 (>39); GLUCOSE, FASTING 94 MG/DL (70-100); POTASSIUM SERUM 4.3 MEQ/L (3.5-5.1); SODIUM LEVEL 144 MEQ/L (136-145); TOTAL PROTEIN 6.5 GM/DL (6.4-8.2)
[2019-03-18 17:19] LABS: BASO % 0.7 % (0.0-1.0); EOS # 0.4 10^3/uL (0.0-0.5); EOS % 8.1 % (0.0-3.0); HEMATOCRIT 39.8 % (36.0-47.0); HEMOGLOBIN 12.7 g/dl (12.0-15.5); LYMPH # 2.2 10^3/uL (1.5-5.0); LYMPH % 48.2 % (24.0-44.0); MEAN CORPUSCULAR HEMOGLOBIN 29.9 pg (27.0-33.0); MEAN CORPUSCULAR HGB CONC 31.9 g/dl (32.0-36.5); MEAN CORPUSCULAR VOLUME 93.6 fl (80.0-96.0); MONO # 0.6 10^3/uL (0.0-0.8); MONO % 12.8 % (0.0-5.0); NEUTROPHILS # 1.4 10^3/uL (1.5-8.5); NEUTROPHILS % 30.2 % (36.0-66.0); PLATELET COUNT, AUTOMATED 340 10^3/uL (150-450); RED BLOOD COUNT 4.25 10^6/uL (4.00-5.40); WHITE BLOOD COUNT 4.5 10^3/uL (4.0-10.0)
== END ==
LOC: M SFHCLERA 10:41
PROVIDERS: ATTEND Nurse Practitioner Family
DX: E55.9 Vitamin D deficiency, unspecified (principal); D50.8 Other iron deficiency anemias; R94.5 Abnormal results of liver function studies; K90.0 Celiac disease

== ENCOUNTER → 2019-07-09 | Outpatient (CLI) | payer MEDICARE ==
[2019-07-09 17:01] LABS: ALBUMIN 3.2 GM/DL (3.2-5.2); ALT/SGPT 46 U/L (12-78); BILIRUBIN,DIRECT < 0.1 MG/DL (0.0-0.2); BILIRUBIN,TOTAL 0.4 MG/DL (0.2-1.0); TOTAL PROTEIN 6.4 GM/DL (6.4-8.2)
== END ==
LOC: M LRY 11:36
PROVIDERS: ATTEND Physician Assistant Medical
DX: R94.5 Abnormal results of liver function studies (principal); K90.0 Celiac disease

== ENCOUNTER → 2019-11-28 | Outpatient (REF) | payer MEDICARE | LOC: M SFHCWAGY 08:43 | PROVIDERS: ATTEND Nurse Practitioner Women's Health | DX: N95.0 Postmenopausal bleeding (principal); N95.8 Other specified menopausal and perimenopausal disorders | CPT/HCPCS: 87624; G0123 ==

== ENCOUNTER → 2019-12-27 | Outpatient (CLI) | payer MEDICARE ==
--- NOTE | 2019-12-27 14:27 | REPMRS ---
Patient History The patient states she has not had a clinical breast exam in over a year. Patient is postmenopausal. No known family history of cancer. 3D TOMOSYNTHESIS WAS PERFORMED. [facility] lifetime risk for breast cancer is 4.7%. CHRISTIANO Manning. Digital Woman Screen Mammo: December 27, 2019 - Exam #: [id number] Bilateral CC and MLO view(s) were taken. Technologist: Alesha Loving, Technologist No prior studies available for comparison. FINDINGS: There are scattered fibroglandular densities. There is no evidence of cancer on this mammogram. Assessment: BI-RADS/ACR category 2 mammogram. Benign Findings. Recommendation Routine screening mammogram of both breasts in 1 year (for women over age 40). This mammogram was interpreted with the aid of an FDA-approved computer-aided dectection system. Electronically Signed By: Vargas Alberts MD 12/27/19 [id number]
== END ==
LOC: M WHC 13:22
PROVIDERS: ATTEND Nurse Practitioner Family
DX: Z12.31 Encounter for screening mammogram for malignant neoplasm of breast (principal); Z78.0 Asymptomatic menopausal state

== ENCOUNTER → 2020-01-13 | Outpatient (REF) | payer MEDICARE | LOC: M LAB REF 16:44 | PROVIDERS: ATTEND Nurse Practitioner Family | DX: C44.619 Basal cell carcinoma of skin of left upper limb, including shoulder (principal) ==

== ENCOUNTER → 2020-04-29 | Outpatient (REF) | payer MEDICARE ==
[2020-04-29 13:31] LABS: BASO % 0.5 % (0.0-1.0); EOS # 0.2 10^3/uL (0.0-0.5); EOS % 2.9 % (0.0-3.0); HEMATOCRIT 42.3 % (36.0-47.0); HEMOGLOBIN 13.2 g/dl (12.0-15.5); LYMPH # 2.9 10^3/uL (1.5-5.0); LYMPH % 46.8 % (24.0-44.0); MEAN CORPUSCULAR HEMOGLOBIN 30.4 pg (27.0-33.0); MEAN CORPUSCULAR HGB CONC 31.2 g/dl (32.0-36.5); MEAN CORPUSCULAR VOLUME 97.5 fl (80.0-96.0); MONO # 0.7 10^3/uL (0.0-0.8); NEUTROPHILS # 2.4 10^3/uL (1.5-8.5); NEUTROPHILS % 38.6 % (36.0-66.0); PLATELET COUNT, AUTOMATED 310 10^3/uL (150-450); RED BLOOD COUNT 4.34 10^6/uL (4.00-5.40); WHITE BLOOD COUNT 6.2 10^3/uL (4.0-10.0)
[2020-04-29 13:53] LABS: BLOOD UREA NITROGEN 18 MG/DL (7-18); CREATININE FOR GFR 0.46 MG/DL (0.55-1.30); GLUCOSE, FASTING 94 MG/DL (70-100)
[2020-04-29 13:54] LABS: ALBUMIN 3.3 GM/DL (3.2-5.2); ALT/SGPT 60 U/L (12-78); BILIRUBIN,TOTAL 0.3 MG/DL (0.2-1.0); CALCIUM LEVEL 8.3 MG/DL (8.8-10.2); CARBON DIOXIDE LEVEL 27 MEQ/L (21-32); CHLORIDE LEVEL 109 MEQ/L (98-107); CHOLESTEROL LEVEL 170 MG/DL (<200); CHOLESTEROL RISK RATIO 4.358 (<5); FERRITIN 11 NG/ML (8-252); GLOMERULAR FILTRATION RATE > 60.0 (>39); HDL CHOLESTEROL 39 MG/DL (>40); LDL CHOLESTEROL 108 MG/DL (<100); MAGNESIUM LEVEL 2.3 MG/DL (1.8-2.4); NON-HDL-C 131 MG/DL; POTASSIUM SERUM 4.4 MEQ/L (3.5-5.1); SODIUM LEVEL 141 MEQ/L (136-145); TOTAL PROTEIN 6.2 GM/DL (6.4-8.2); TRIGLYCERIDES LEVEL 117 MG/DL (<150)
[2020-04-29 13:58] LABS: TOTAL 25(OH) VITAMIN D 28.8 NG/ML (30.0-100.0)
== END ==
LOC: M PLALAB 10:00
PROVIDERS: ATTEND Nurse Practitioner Family
DX: D50.8 Other iron deficiency anemias (principal); I10 Essential (primary) hypertension; E78.2 Mixed hyperlipidemia; R25.2 Cramp and spasm; E55.9 Vitamin D deficiency, unspecified

== ENCOUNTER → 2020-11-09 | Outpatient (REF) | payer MEDICARE ==
[2020-11-09 14:28] LABS: ALBUMIN 3.5 GM/DL (3.2-5.2); ALT/SGPT 39 U/L (12-78); BILIRUBIN,TOTAL 0.3 MG/DL (0.2-1.0); BLOOD UREA NITROGEN 17 MG/DL (7-18); CALCIUM LEVEL 8.4 MG/DL (8.8-10.2); CARBON DIOXIDE LEVEL 29 MEQ/L (21-32); CHLORIDE LEVEL 112 MEQ/L (98-107); CREATININE FOR GFR 0.47 MG/DL (0.55-1.30); GLOMERULAR FILTRATION RATE > 60.0 (>39); GLUCOSE, FASTING 100 MG/DL (70-100); POTASSIUM SERUM 4.2 MEQ/L (3.5-5.1); SODIUM LEVEL 143 MEQ/L (136-145); TOTAL PROTEIN 6.3 GM/DL (6.4-8.2)
== END ==
LOC: M PLALAB 12:59
PROVIDERS: ATTEND Nurse Practitioner Family
DX: E83.51 Hypocalcemia (principal)

== ENCOUNTER → 2020-11-13 | Outpatient (CLI) | payer MEDICARE ==
[~2020-11-13] MED LIST changes: +GASTROGRAFIN SOLUTION 30ML (Q9963) As Ordered ONE; +ISOVUE-370 76% 100ML VIAL As Ordered ONE; +READI-CAT 2 As Ordered ONE
--- NOTE | 2020-11-13 17:02 | REP ---
INDICATION: LOWER ABD PAIN COMPARISON: None. TECHNIQUE: CT Scan of the abdomen and pelvis was performed without intravenous contrast. Oral contrast was administered. Sagittal and coronal reconstruction images performed. FINDINGS: Lung bases: Unremarkable. Liver: Grossly unremarkable. Gallbladder: Unremarkable. Spleen: Grossly unremarkable. Adrenals: Normal. Pancreas: Grossly unremarkable.. Kidneys: No hydronephrosis or nephrolithiasis. Ureters demonstrate no dilatation or calculus. Small and large bowel: Grossly unremarkable. Free fluid: None. Abdominal aorta: No aneurysm. Adenopathy: None. Appendix: Prior appendectomy. Osseous structures: There are mild degenerative changes of the spine without compression deformity. Pelvis: No mass. No bladder calculus seen. There is a small umbilical hernia containing noninflamed fat. IMPRESSION: Negative non-contrast CT abdomen and pelvis. <Electronically signed by Vargas Alberts > 11/13/20 [id number]
== END ==
LOC: M RAD 12:36
PROVIDERS: ATTEND Nurse Practitioner Family
DX: R10.30 Lower abdominal pain, unspecified (principal)
CPT/HCPCS: 74176; Q9963

== ENCOUNTER → 2021-08-07 | Outpatient (CLI) | payer MEDICARE ==
[~2021-08-07] MED LIST changes: +CALC500T31; +FERR325T19; -GASTROGRAFIN SOLUTION 30ML (Q9963) As Ordered ONE; -ISOVUE-370 76% 100ML VIAL As Ordered ONE; -READI-CAT 2 As Ordered ONE
== END ==
LOC: M LABSMTC 12:26
PROVIDERS: ATTEND Anesthesiology
DX: Z01.812 Encounter for preprocedural laboratory examination (principal); Z20.822 Contact with and (suspected) exposure to COVID-19

== ENCOUNTER 2021-08-12 08:35 | Day surgery (SDC) | payer MEDICARE ==
[~2021-08-12] VITALS: Ht 160 cm; Wt 62.1 kg
[~2021-08-12 08:35] MED LIST changes: +CYCLOPENTOLATE 1% OPHTH SOLN 2 ML BTL OD SCH; +FLURBIPROFEN 0.03% OPHTH SOLN 2.5 ML OD SCH; +LIDOCAINE 1% SDV 5ML VIAL As Ordered ONE; +LR 1,000 ML IV SCH; +MAXITROL OPHTH SUSP 5 ML As Ordered ONE; +MIDAZOLAM INJ 2MG/2ML VIAL (J2250 PER 1MG) As Ordered ONE; +PHENYLEPHRINE 2.5% OPHTH SOL 2ML OD SCH; +PHENYLEPHRINE HCL 10 % OPHTH. SOL 5ML OD ONE; +TETRACAINE 0.5% OPHTH SOLN 4ML OD SCH; +fentaNYL 100 MCG/2 ML INJECTION As Ordered ONE
[2021-08-12 12:10] VITALS: BP 142/78
== END 2021-08-12 12:18 | disposition home or self-care (01) ==
LOC: M SDC 08:35
PROVIDERS: ATTEND Ophthalmology
DX: H25.11 Age-related nuclear cataract, right eye (principal); R12 Heartburn; Z79.899 Other long term (current) drug therapy
CPT/HCPCS: 66984; 96361; 96374; J2250; J3010; V2632

== ENCOUNTER → 2021-08-23 | Outpatient (CLI) | payer MEDICARE ==
[~2021-08-23] MED LIST changes: -CYCLOPENTOLATE 1% OPHTH SOLN 2 ML BTL OD SCH; -FLURBIPROFEN 0.03% OPHTH SOLN 2.5 ML OD SCH; -LIDOCAINE 1% SDV 5ML VIAL As Ordered ONE; -LR 1,000 ML IV SCH; -MAXITROL OPHTH SUSP 5 ML As Ordered ONE; -MIDAZOLAM INJ 2MG/2ML VIAL (J2250 PER 1MG) As Ordered ONE; -PHENYLEPHRINE 2.5% OPHTH SOL 2ML OD SCH; -PHENYLEPHRINE HCL 10 % OPHTH. SOL 5ML OD ONE; -TETRACAINE 0.5% OPHTH SOLN 4ML OD SCH; -fentaNYL 100 MCG/2 ML INJECTION As Ordered ONE
[2021-08-23 13:25] LABS: BASO % 0.7 % (0.0-1.0); EOS # 0.3 10^3/uL (0.0-0.5); EOS % 5.6 % (0.0-3.0); HEMATOCRIT 40.6 % (36.0-47.0); HEMOGLOBIN 12.8 g/dl (12.0-15.5); LYMPH # 2.6 10^3/uL (1.5-5.0); LYMPH % 46.1 % (24.0-44.0); MEAN CORPUSCULAR HEMOGLOBIN 31.7 pg (27.0-33.0); MEAN CORPUSCULAR HGB CONC 31.5 g/dl (32.0-36.5); MEAN CORPUSCULAR VOLUME 100.5 fl (80.0-96.0); MONO # 0.7 10^3/uL (0.0-0.8); MONO % 12.1 % (2.0-8.0); NEUTROPHILS % 35.3 % (36.0-66.0); PLATELET COUNT, AUTOMATED 307 10^3/uL (150-450); RED BLOOD COUNT 4.04 10^6/uL (4.00-5.40); WHITE BLOOD COUNT 5.7 10^3/uL (4.0-10.0)
[2021-08-23 13:59] LABS: ALBUMIN 3.3 GM/DL (3.2-5.2); ALT/SGPT 42 U/L (12-78); BILIRUBIN,TOTAL 0.4 MG/DL (0.2-1.0); BLOOD UREA NITROGEN 22 MG/DL (7-18); CALCIUM LEVEL 8.3 MG/DL (8.8-10.2); CARBON DIOXIDE LEVEL 26 MEQ/L (21-32); CHLORIDE LEVEL 110 MEQ/L (98-107); CHOLESTEROL LEVEL 170 MG/DL (<200); CREATININE FOR GFR 0.53 MG/DL (0.55-1.30); GLOMERULAR FILTRATION RATE > 60.0 (>39); GLUCOSE, FASTING 91 MG/DL (70-100); HDL CHOLESTEROL 40 MG/DL (>40); LDL CHOLESTEROL 108 MG/DL (<100); NON-HDL-C 130 MG/DL; POTASSIUM SERUM 4.5 MEQ/L (3.5-5.1); SODIUM LEVEL 140 MEQ/L (136-145); TOTAL PROTEIN 5.9 GM/DL (6.4-8.2); TRIGLYCERIDES LEVEL 110 MG/DL (<150)
[2021-08-23 14:07] LABS: TOTAL 25(OH) VITAMIN D 37.6 NG/ML (30.0-100.0)
== END ==
LOC: M PLALAB 09:41
PROVIDERS: ATTEND Family Medicine
DX: Z00.00 Encounter for general adult medical examination without abnormal findings (principal)

== ENCOUNTER → 2022-08-03 | Outpatient (REF) | payer MEDICARE ==
[~2022-08-03] MED LIST changes: -OLOP0.1D OD; +OLOP5DRO16 OD
== END ==
LOC: M SFHCWAGY 10:13
PROVIDERS: ATTEND Nurse Practitioner Family
DX: Z12.4 Encounter for screening for malignant neoplasm of cervix (principal)
CPT/HCPCS: 87624; G0123

== ENCOUNTER → 2022-09-05 | Outpatient (REF) | payer MEDICARE, OTHER ==
[2022-09-05 18:09] LABS: BASO % 0.4 % (0.0-1.0); EOS # 0.2 10^3/uL (0.0-0.5); EOS % 3.2 % (0.0-3.0); HEMATOCRIT 43.4 % (36.0-47.0); HEMOGLOBIN 13.7 g/dl (12.0-15.5); LYMPH # 3.1 10^3/uL (1.5-5.0); LYMPH % 45.8 % (24.0-44.0); MEAN CORPUSCULAR HEMOGLOBIN 33.7 pg (27.0-33.0); MEAN CORPUSCULAR HGB CONC 31.6 g/dl (32.0-36.5); MEAN CORPUSCULAR VOLUME 106.6 fl (80.0-96.0); MONO # 0.7 10^3/uL (0.0-0.8); MONO % 10.9 % (2.0-8.0); NEUTROPHILS # 2.7 10^3/uL (1.5-8.5); NEUTROPHILS % 39.6 % (36.0-66.0); PLATELET COUNT, AUTOMATED 321 10^3/uL (150-450); RED BLOOD COUNT 4.07 10^6/uL (4.00-5.40); WHITE BLOOD COUNT 6.8 10^3/uL (4.0-10.0)
[2022-09-05 18:20] LABS: HEMOGLOBIN A1c 5.4 % (4.0-6.0)
[2022-09-05 18:41] LABS: ALBUMIN 3.2 G/DL (3.2-5.2); ALKALINE PHOSPHATASE 130 U/L (46-116); ALT/SGPT 51 U/L (7.0-40); AST/SGOT 35 U/L (<34); BILIRUBIN,TOTAL 0.3 MG/DL (0.3-1.2); BLOOD UREA NITROGEN 16 MG/DL (9-23); CALCIUM LEVEL 7.9 MG/DL (8.3-10.6); CARBON DIOXIDE LEVEL 26 MMOL/L (20-31); CHLORIDE LEVEL 109 MMOL/L (98-107); CHOLESTEROL LEVEL 150 MG/DL (<200); CHOLESTEROL RISK RATIO 5.05 (<5); CREATININE FOR GFR 0.48 MG/DL (0.55-1.30); GLOMERULAR FILTRATION RATE > 60.0 (>39); GLUCOSE, FASTING 92 MG/DL (74-106); HDL CHOLESTEROL 29.7 MG/DL (>40); LDL CHOLESTEROL 89.3 MG/DL (<100); MAGNESIUM LEVEL 1.9 MG/DL (1.8-2.4); NON-HDL-C 120 MG/DL; POTASSIUM SERUM 4.9 MMOL/L (3.5-5.1); SODIUM LEVEL 139 MMOL/L (136-145); THYROID STIMULATING HORMONE 2.726 uIU/ML (0.55-4.78); TOTAL PROTEIN 5.9 G/DL (5.7-8.2); TRIGLYCERIDES LEVEL 155 MG/DL (<150)
== END ==
LOC: M LAB REF 16:24
PROVIDERS: ATTEND Nurse Practitioner Family
DX: Z13.228 Encounter for screening for other metabolic disorders (principal); Z79.899 Other long term (current) drug therapy

== ENCOUNTER → 2022-12-21 | Outpatient (REF) | payer MEDICARE ==
[~2022-12-21] MED LIST changes: -OLOP5DRO16 OD; +OLOP5DRO17 OD
[2022-12-21 14:34] LABS: ALBUMIN 3.1 G/DL (3.2-5.2); ALKALINE PHOSPHATASE 132 U/L (46-116); ALT/SGPT 43 U/L (7.0-40); AST/SGOT 28 U/L (<34); BILIRUBIN,TOTAL 0.3 MG/DL (0.3-1.2); BLOOD UREA NITROGEN 20 MG/DL (9-23); CALCIUM LEVEL 8.6 MG/DL (8.3-10.6); CARBON DIOXIDE LEVEL 23 MMOL/L (20-31); CHLORIDE LEVEL 111 MMOL/L (98-107); CHOLESTEROL LEVEL 135 MG/DL (<200); CHOLESTEROL RISK RATIO 4.35 (<5); CREATININE FOR GFR 0.59 MG/DL (0.55-1.30); GLOMERULAR FILTRATION RATE > 60.0 (>39); GLUCOSE, FASTING 88 MG/DL (74-106); LDL CHOLESTEROL 87.8 MG/DL (<100); POTASSIUM SERUM 4.1 MMOL/L (3.5-5.1); SODIUM LEVEL 141 MMOL/L (136-145); TOTAL PROTEIN 5.5 G/DL (5.7-8.2); TRIGLYCERIDES LEVEL 81 MG/DL (<150)
== END ==
LOC: M LAB REF 12:27
PROVIDERS: ATTEND Nurse Practitioner Family
DX: R79.89 Other specified abnormal findings of blood chemistry (principal); R74.8 Abnormal levels of other serum enzymes

== ENCOUNTER → 2023-07-31 | Outpatient (CLI) | payer OTHER ==
[2023-07-31 15:07] LABS: BASO % 0.5 % (0.0-1.0); EOS # 0.2 10^3/uL (0.0-0.5); EOS % 3.6 % (0.0-3.0); HEMATOCRIT 42.3 % (36.0-47.0); HEMOGLOBIN 13.5 g/dl (12.0-15.5); LYMPH # 2.7 10^3/uL (1.5-5.0); LYMPH % 40.4 % (24.0-44.0); MEAN CORPUSCULAR HEMOGLOBIN 32.2 pg (27.0-33.0); MEAN CORPUSCULAR HGB CONC 31.9 g/dl (32.0-36.5); MONO # 0.8 10^3/uL (0.0-0.8); MONO % 12.2 % (2.0-8.0); NEUTROPHILS # 2.9 10^3/uL (1.5-8.5); NEUTROPHILS % 43.1 % (36.0-66.0); PLATELET COUNT, AUTOMATED 322 10^3/uL (150-450); RED BLOOD COUNT 4.19 10^6/uL (4.00-5.40); WHITE BLOOD COUNT 6.6 10^3/uL (4.0-10.0)
[2023-07-31 15:44] LABS: TOTAL IRON BINDING CAPACITY 305 UG/DL (250-425)
[2023-07-31 15:45] LABS: ALBUMIN 3.3 G/DL (3.2-5.2); ALKALINE PHOSPHATASE 111 U/L (46-116); ALT/SGPT 34 U/L (7.0-40); AST/SGOT 19 U/L (<34); BILIRUBIN,TOTAL 0.4 MG/DL (0.3-1.2); BLOOD UREA NITROGEN 15 MG/DL (9-23); CALCIUM LEVEL 8.8 MG/DL (8.3-10.6); CARBON DIOXIDE LEVEL 29 MMOL/L (20-31); CHLORIDE LEVEL 109 MMOL/L (98-107); CHOLESTEROL LEVEL 159 MG/DL (<200); CHOLESTEROL RISK RATIO 3.99 (<5); CREATININE FOR GFR 0.52 MG/DL (0.55-1.30); FERRITIN 32.9 NG/ML (7.3-270.7); FREE T4 1.29 NG/DL (0.89-1.76); GLOMERULAR FILTRATION RATE > 60.0 (>39); GLUCOSE, FASTING 112 MG/DL (74-106); HDL CHOLESTEROL 39.8 MG/DL (>40); IRON (FE) 94 UG/DL (50-170); LDL CHOLESTEROL 94.8 MG/DL (<100); NON-HDL-C 119.2 MG/DL; PERCENT SATURATION 30.8 % (13.2-45.0); POTASSIUM SERUM 4.6 MMOL/L (3.5-5.1); SODIUM LEVEL 142 MMOL/L (136-145); THYROID STIMULATING HORMONE 3.182 uIU/ML (0.55-4.78); TOTAL 25(OH) VITAMIN D 34.4 NG/ML (20.0-100.0); TOTAL PROTEIN 6.1 G/DL (5.7-8.2); TRIGLYCERIDES LEVEL 122 MG/DL (<150)
== END ==
LOC: M PLALAB 09:10
PROVIDERS: ATTEND Physician Assistant
DX: Z00.00 Encounter for general adult medical examination without abnormal findings (principal); E55.9 Vitamin D deficiency, unspecified; E78.2 Mixed hyperlipidemia; I10 Essential (primary) hypertension; E03.9 Hypothyroidism, unspecified; D50.8 Other iron deficiency anemias

== ENCOUNTER 2023-08-15 12:27 | Emergency (ER) | payer OTHER ==
[~2023-08-15] VITALS: Ht 160 cm; Wt 61.6 kg
[2023-08-15 18:36] LABS: HEMATOCRIT 41.6 % (36.0-47.0); HEMOGLOBIN 13.5 g/dl (12.0-15.5); MEAN CORPUSCULAR HEMOGLOBIN 31.7 pg (27.0-33.0); MEAN CORPUSCULAR HGB CONC 32.5 g/dl (32.0-36.5); MEAN CORPUSCULAR VOLUME 97.7 fl (80.0-96.0); PLATELET COUNT, AUTOMATED 341 10^3/uL (150-450); RED BLOOD COUNT 4.26 10^6/uL (4.00-5.40)
[2023-08-15 19:02] LABS: ALBUMIN 3.6 G/DL (3.2-5.2); ALKALINE PHOSPHATASE 105 U/L (46-116); ALT/SGPT 37 U/L (7.0-40); AST/SGOT 22 U/L (<34); BILIRUBIN,DIRECT < 0.1 MG/DL (<0.4); BILIRUBIN,TOTAL 0.3 MG/DL (0.3-1.2); TOTAL PROTEIN 6.2 G/DL (5.7-8.2)
[2023-08-15 19:25] VITALS: BP 170/92; TEMP 97.2; O2SAT 97
== END 2023-08-15 19:30 | disposition home or self-care (01) ==
LOC: M ED 12:27
DX: R03.0 Elevated blood-pressure reading, without diagnosis of hypertension (principal); D64.9 Anemia, unspecified; Z91.02 Food additives allergy status; Z79.83 Long term (current) use of bisphosphonates; Z79.899 Other long term (current) drug therapy

== ENCOUNTER → 2023-10-31 | Outpatient (REF) | payer OTHER, MEDICARE | LOC: M SFHCDERM 17:41 | PROVIDERS: ATTEND Physician Assistant | DX: C44.92 Squamous cell carcinoma of skin, unspecified (principal) ==

== ENCOUNTER → 2024-03-06 | Outpatient (CLI) | payer OTHER, MEDICARE | LOC: M LRY 14:55 | PROVIDERS: ATTEND Internal Medicine Gastroenterology | DX: K90.0 Celiac disease (principal) ==

== ENCOUNTER → 2024-03-13 | Outpatient (REF) | payer MEDICARE, OTHER | LOC: M SFHCPLAZ 12:38 | PROVIDERS: ATTEND Physician Assistant Medical | DX: J06.9 Acute upper respiratory infection, unspecified (principal) ==

== ENCOUNTER 2024-03-21 21:16 | Emergency (ER) | payer OTHER ==
[~2024-03-21] VITALS: Ht 160 cm; Wt 57.4 kg
[2024-03-21 21:19] VITALS: BP 158/82; TEMP 97.9; O2SAT 97
== END 2024-03-21 21:22 | disposition left against medical advice (07) ==
LOC: M ED 21:16
DX: Z53.21 Procedure and treatment not carried out due to patient leaving prior to being seen by health care provider (principal)

== ENCOUNTER → 2025-03-02 | Outpatient (CLI) | payer MEDICARE ==
[~2025-03-02] MED LIST changes: -CALC500T31; +OYST500T16
[2025-03-02 11:35] LABS: VITAMIN B12 LEVEL 631.0 PG/ML (211-911)
[2025-03-04 15:28] LABS: HOMOCYST(E)INE SERUM 8.1 umol/L (< or = 13.4)
== END ==
LOC: M LAB 09:50
PROVIDERS: ATTEND Student in an Organized Health Care Education/Training Program
DX: E53.8 Deficiency of other specified B group vitamins (principal)